=== PATIENT | female | born 1980 | race Two or more races ===

== ENCOUNTER 2022-02-10 05:50 | Day surgery (SDC) | payer OTHER ==
[~2022-02-10] VITALS: Ht 157.5 cm; Wt 62.6 kg
[~2022-02-10 05:50] MED LIST: ARIMIDEX; ZOLADEX10.8 MG
== END 2022-02-10 16:50 | disposition home or self-care (01) ==
LOC: CIR.AMB 05:50
PROVIDERS: ATTEND Surgery
DX: D05.12 Intraductal carcinoma in situ of left breast (principal); C77.3 Secondary and unspecified malignant neoplasm of axilla and upper limb lymph nodes; D24.1 Benign neoplasm of right breast; Z86.16 Personal history of COVID-19; N62 Hypertrophy of breast; Z42.1 Encounter for breast reconstruction following mastectomy
CPT/HCPCS: 19307; 19303; 19357; L8699

== ENCOUNTER 2022-04-21 07:01 | Day surgery (SDC) | payer OTHER ==
[~2022-04-21] VITALS: Ht 157.5 cm; Wt 62.6 kg
== END 2022-04-21 14:45 | disposition home or self-care (01) ==
LOC: CIR.AMB 07:01
PROVIDERS: ATTEND Plastic Surgery
DX: Z42.1 Encounter for breast reconstruction following mastectomy (principal); C50.912 Malignant neoplasm of unspecified site of left female breast; Z90.13 Acquired absence of bilateral breasts and nipples; Z20.822 Contact with and (suspected) exposure to COVID-19; Z86.16 Personal history of COVID-19
CPT/HCPCS: 11970; L8600

== ENCOUNTER 2023-06-26 08:43 | Emergency (ER) | payer OTHER ==
[~2023-06-26] VITALS: Ht 152.4 cm; Wt 59.0 kg
[2023-06-26] MEDS ORDERED: VERZENIO150 MG PO (09:09)
[2023-06-26 11:10] LABS: HEMATOCRIT 36.5 % (36.0-45.00); HEMOGLOBIN 12.4 g/dL (12.0-15.00); MEAN CELL VOLUME 97.8 fL (80.00-100.00); MEAN CORPUSCULAR HEMOGLOBIN 33.3 pg (27.00-32.0); MEAN CORPUSCULAR HGB CONC 34.1 g/dl (32.0-36.0); PLATELET COUNT 285 K/uL (150-450); RED BLOOD COUNT 3.73 M/uL (4.00-6.00); RED CELL DISTRIBUTION WIDTH 13.1 % (11.5-14.5)
[2023-06-26 11:26] LABS: PH,URINE 5.5 (5.0-8.0); URINE APPEARANCE Clear; URINE BILIRRUBIN Negative (NEGATIVE); URINE BLOOD Negative; URINE COLOR Yellow; URINE GLUCOSE Negative (NEGATIVE); URINE LEUKOCYTE Negative; URINE NITRATE Negative; URINE PROTEIN Negative (NEGATIVE); URINE UROBILINOGEN 0.2 E.U./dl
[2023-06-26 11:33] LABS: URINE BACTERIA 6.2 uL (0.0-1933); URINE EPITHELIAL CELLS 2.6 uL (0.0-38.8); URINE WBC 3.8 uL (0.0-23.2)
[2023-06-26 11:38] LABS: URINE RBC 1.7 uL (0.0-20.8)
[2023-06-26 11:53] LABS: CALCIUM 10.2 mg/dL (8.5-10.1); CREATININE SERUM 0.79 mg/dL (0.55-1.02); GFR 80.2; POTASSIUM 3.85 mEq/L (3.5-5.1)
== END 2023-06-26 16:55 | disposition home or self-care (01) ==
LOC: ER 08:43
PROVIDERS: Emergency Medicine
DX: R10.84 Generalized abdominal pain (principal)